=== PATIENT | female | born 1980 | race Hispanic/Latino ===

== ENCOUNTER 2020-02-26 09:46 | Emergency (ER) | payer SELFPAY ==
[2020-02-26] MEDS ORDERED: ACETAMINOPHEN-CODEINE 300/30MG TAB ONE (11:05)
[2020-02-26] MEDS ORDERED: ASPIRIN 325 MG TABLET ONE (16:47)
== END 2020-02-26 11:54 | disposition home or self-care (01) ==
LOC: EDH 09:46
DX: M25.562 Pain in left knee (principal); J45.909 Unspecified asthma, uncomplicated; Z98.890 Other specified postprocedural states
CPT/HCPCS: 29505; 73562

== ENCOUNTER 2020-07-14 05:30 | Observation (INO) | payer BC ==
[2020-07-13 09:22] VITALS: BP 137/64
[2020-07-13 12:21] LABS: BASOPHILS % (AUTO) 0.3 % (0.0-5.0); EOSINOPHILS % (AUTO) 0.9 % (0.0-8.0); LYMPHOCYTES % (AUTO) 26.2 % (21.0-51.0); MEAN CORPUSCULAR HEMOGLOBIN 27.9 pg (27.0-33.0); MEAN CORPUSCULAR HGB CONC 32.9 g/dL (32.0-36.0); MEAN CORPUSCULAR VOLUME 84.8 fL (79-99); MONOCYTES % (AUTO) 4.4 % (3.0-13.0); NEUTROPHILS % (AUTO) 67.8 % (40.0-77.0); PLATELET COUNT (AUTO) 149 K/uL (130-400); RED BLOOD CELL COUNT(AUTO) 4.48 MIL/uL (4.00-5.50); RED CELL DISTRIBUTION WIDTH 13.3 % (11.0-15.5); WHITE BLOOD COUNT (AUTO) 9.9 K/uL (4.8-10.8)
[2020-07-14] VITALS (23 sets, daily range): BP systolic 93–162; BP diastolic 42–88
[~2020-07-14] VITALS: Ht 154.9 cm; Wt 139.7 kg
[~2020-07-14 05:30] MED LIST: LISI1TAB32 PO
[2020-07-14] MEDS ORDERED: LACTATED RINGERS 1000ML 1,000 ML IV ONE (05:56)
[2020-07-14] MEDS ORDERED: CEFAZOLIN SODIUM 1 GM VIAL ONE (06:26)
[2020-07-14] MEDS ORDERED: LIDOCAINE PF 2% 5ML ABBOJECT ONE (07:41)
[2020-07-14] MEDS ORDERED: SUCCINYLCHOLINE CHLORIDE 20 MG/ML 10 ML VIAL ONE (07:41)
[2020-07-14] MEDS ORDERED: DEXAMETHASONE SOD PHOSPHATE 10MG/ML 1ML VIAL ONE (07:42)
[2020-07-14] MEDS ORDERED: GLYCOPYRROLATE 1 MG/5 ML SYRINGE ONE (07:42)
[2020-07-14] MEDS ORDERED: PROPOFOL 10 MG/ML 20ML VIAL IV ONE (07:42)
[2020-07-14] MEDS ORDERED: MIDAZOLAM HCL 1 MG/ML 2ML VIAL ONE (07:42)
[2020-07-14] MEDS ORDERED: ONDANSETRON HCL 4 MG/2 ML VIAL ONE (07:42)
[2020-07-14] MEDS ORDERED: NEOSTIGMINE 5MG/5ML SYR IV ONE (07:42)
[2020-07-14] MEDS ORDERED: ROCURONIUM 10MG/1ML SYR 10 MG/ML ML ONE ×2 (07:43→09:06)
[2020-07-14] MEDS ORDERED: FENTANYL CITRATE PF 50 MCG/1 ML 2ML VIAL ONE ×2 (07:44→10:15)
[2020-07-14] MEDS ORDERED: EPHEDRINE SULFATE 50 MG/ML AMPULE ONE (09:02)
[2020-07-14] MEDS ORDERED: ALBUMIN (HUMAN) 25% 50 ML IV ONE (09:57)
[2020-07-14] MEDS ORDERED: MEPERIDINE-PF 25 MG/ML SYG ONE ×2 (11:06→11:16)
[2020-07-14] MEDS ORDERED: BISACODYL 10 MG SUPP.RECT RC PRN (13:30)
[2020-07-14] MEDS ORDERED: SIMETHICONE 80 MG TAB.CHEW PO PRN (13:30)
[2020-07-14] MEDS ORDERED: IBUPROFEN 600 MG TABLET PO PRN (13:30)
[2020-07-14] MEDS ORDERED: ONDANSETRON HCL 4 MG/2 ML VIAL IVP PRN (13:30)
[2020-07-14] MEDS ORDERED: PROMETHAZINE HCL 25 MG/ML 1ML AMPULE IM PRN ×2 (13:30)
[2020-07-14] MEDS ORDERED: DOCUSATE SODIUM 100 MG CAP PO PRN (13:30)
[2020-07-14] MEDS ORDERED: MEPERIDINE-PF 75 MG/ML SYG IM PRN (13:30)
[2020-07-14] MEDS: DEXTROSE 5 %-0.45 % NACL 1,000 ML IV PRN ×2 (14:28→19:55)
[2020-07-14] MEDS: ACETAMINOPHEN-CODEINE 300/30MG TAB PO PRN (17:52)
[2020-07-15] MEDS: ACETAMINOPHEN-CODEINE 300/30MG TAB PO PRN (03:43)
[2020-07-15 04:03] VITALS: BP 122/58
[2020-07-15] MEDS: DEXTROSE 5 %-0.45 % NACL 1,000 ML IV PRN (04:13)
[2020-07-15 05:26] LABS: HEMATOCRIT 33.2 % (36-48); MEAN CORPUSCULAR HEMOGLOBIN 27.6 pg (27.0-33.0); MEAN CORPUSCULAR HGB CONC 31.9 g/dL (32.0-36.0); MEAN CORPUSCULAR VOLUME 86.5 fL (79-99); RED BLOOD CELL COUNT(AUTO) 3.84 MIL/uL (4.00-5.50); RED CELL DISTRIBUTION WIDTH 13.5 % (11.0-15.5); WHITE BLOOD COUNT (AUTO) 12.4 K/uL (4.8-10.8)
[2020-07-15 07:16] VITALS: BP 130/81
[2020-07-15] MEDS ORDERED: CEFAZOLIN 3GM /D5W 100ML 100 ML IV PRN (08:00)
[2020-07-15] MEDS ORDERED: LACTATED RINGERS 1000ML 1,000 ML IV SCH (08:00)
[2020-07-15] MEDS ORDERED: IBUPROFEN 800 MG TAB PO PRN (08:30)
[2020-07-15] MEDS ORDERED: ACETAMINOPHEN-CODEINE 300/30MG TAB PO PRN (08:30)
[2020-07-15] MEDS ORDERED: HYDROCODONE/ACETAMINOPHEN 5/325 MG TAB PO PRN (08:30)
[2020-07-15] MEDS ORDERED: FERR325T22 PO (11:13)
[2020-07-15] MEDS ORDERED: ACET1TAB25 PO (11:13)
[2020-07-15 11:45] VITALS: BP 121/78
== END 2020-07-15 12:30 | disposition home or self-care (01) ==
LOC: DAH 05:30 → WSH 05:31 → DAH 05:31 → WSH 05:33
PROVIDERS: ADMIT Obstetrics & Gynecology; ATTEND Obstetrics & Gynecology
DX: D25.9 Leiomyoma of uterus, unspecified (principal); Z20.822 Contact with and (suspected) exposure to COVID-19; N92.1 Excessive and frequent menstruation with irregular cycle; E66.01 Morbid (severe) obesity due to excess calories; Z68.43 Body mass index [BMI] 50.0-59.9, adult
CPT/HCPCS: 36415 ×2; 58262; 84703; 85025; 85027; 86850; 86900; 86901; 96360; 96361 ×2; 96372; A4215 ×2; A4221; A4222; A4223; A4344; A4510; A4600; A4649 ×3; A4663; A4930; A6260; C1769 ×2; C9803; G0378 ×30; J0330; J0690; J1100; J2001; J2175 ×3; J2250; J2405; J2550; J2704; J2710; J3010 ×2; J3490 ×2; J7030; J7120 ×2; P9047; U0003